=== PATIENT | male | born 1975 | race Caucasian/White ===

== ENCOUNTER 2017-08-04 10:31 | Emergency (ER) | payer SELFPAY ==
[2017-08-04] MEDS: KETOROLAC 30 MG INJ IM (12:15)
== END 2017-08-04 13:28 | disposition home or self-care (01) ==
LOC: FTE 10:31
DX: M54.31 Sciatica, right side (principal); F17.210 Nicotine dependence, cigarettes, uncomplicated
CPT/HCPCS: 96372; 99284-25; J1885